=== PATIENT | female | born 1985 | race Caucasian/White ===

== ENCOUNTER 2017-02-23 10:34 | Day surgery (SDC) | payer OTHER ==
--- NOTE | ~2017-02-23 | EGD ---
EGD REPORT [facility] [address] [address] NAME: LAUREN BARBER : [birth year] STATUS : REG [facility]#: [id number] AGE: 31 ADM/REG DATE : 02/23/17 MR#: [id number] REPORT SERV DATE: 02/23/17 DICTATED BY: AUTUMN MOTA DATE: 02/23/17 REPORT STATUS : Draft TRANSCRIBED [facility]: [facility] DATE: 02/23/17 Endoscopy Center Patient Name: Lauren Barber Date of : 1985 Attending MD: AUTUMN MOTA MD Procedure Date No Time: 02/23/2017 Procedure: Upper GI endoscopy Indications: Dysphagia, Heartburn, Suspected esophageal reflux, Unexplained chest pain, Weight loss Referring MD: MASOOD STAPLETON Medicines: as per anesthesia Complications: No immediate complications. Procedure: Pre-Anesthesia Assessment: - ASA Grade Assessment: II - A patient with mild systemic disease. After obtaining informed consent, the endoscope was passed under direct vision. Throughout the procedure, the patient's blood pressure, pulse, and oxygen saturations were monitored continuously. The GIF H190 [id number] was introduced through the mouth, and advanced to the third part of duodenum. The upper GI endoscopy was accomplished without difficulty. The patient tolerated the procedure. Findings: Mucosal changes including ringed esophagus, vertical lines and white specks were found in the middle third of the esophagus. The scope was withdrawn. Dilation was performed with a Harris dilator with no resistance at 38 Fr and no resistance at 42 Fr. The entire examined stomach was normal. The cardia and gastric fundus were normal on retroflexion. The examined duodenum was normal. Biopsies were taken with a cold forceps for histology. Mucosal changes including ringed esophagus, vertical lines and white specks were found in the middle third of the esophagus. Biopsies were taken with a cold forceps for histology. Impression: - Esophageal mucosal changes suspicious for eosinophilic esophagitis. Dilated. - Normal stomach. - Normal examined duodenum. Biopsied. - Esophageal mucosal changes suggestive of eosinophilic esophagitis. Biopsied. Recommendation: - Await pathology results. EGD REPORT [address] [address] NAME: LAUREN BARBER : [birth year] STATUS : REG [facility]#: [id number] AGE: 31 ADM/REG DATE : 02/23/17 MR#: [id number] REPORT SERV DATE: 02/23/17 DICTATED BY: AUTUMN MOTA. DATE: 02/23/17 REPORT STATUS : Draft TRANSCRIBED BY: [employer] DATE: 02/23/17 - Continue present medications. Procedure Code(s): --- Professional --- 71930, Esophagogastroduodenoscopy, flexible, transoral; with biopsy, single or multiple 51650, Dilation of esophagus, by unguided sound or bougie, single or multiple passes Diagnosis Code(s): --- Professional --- K20.9, Esophagitis, unspecified R13.10, Dysphagia, unspecified R12, Heartburn R07.9, Chest pain, unspecified R63.4, Abnormal weight loss CPT copyright 2013 [employer]. All rights reserved. The codes documented in this report are preliminary and upon research contracts supervisor review may be revised to meet current compliance requirements. AUTUMN MOTA MD 02/23/2017 2:28 PM This report has been signed electronically. Number of Addenda: 0 Note Initiated On: 02/23/2017 1:58 PM Scope Withdrawal Time 0 hours 0 minutes 0 seconds [id number] [id number]
--- NOTE | ~2017-02-23 | EGD ---
EGD REPORT [facility] [address] [address] NAME: LAUREN BARBER : [birth year] STATUS : REG [facility]#: [id number] AGE: 31 ADM/REG DATE : 02/23/17 MR#: [id number] REPORT SERV DATE: 02/23/17 DICTATED BY: AUTUMN MOTA DATE: 02/23/17 REPORT STATUS : Draft [facility] DATE: 02/23/17 Endoscopy Center Patient Name: Lauren Barber Date of : 1985 Attending MD: AUTUMN MOTA MD Procedure Date No Time: 02/23/2017 Procedure: Upper GI endoscopy Indications: Dysphagia, Heartburn, Suspected esophageal reflux, Unexplained chest pain, Weight loss Referring MD: MASOOD STAPLETON Medicines: as per anesthesia Complications: No immediate complications. Procedure: Pre-Anesthesia Assessment: - ASA Grade Assessment: II - A patient with mild systemic disease. After obtaining informed consent, the endoscope was passed under direct vision. Throughout the procedure, the patient's blood pressure, pulse, and oxygen saturations were monitored continuously. The GIF H190 [id number] was introduced through the mouth, and advanced to the third part of duodenum. The upper GI endoscopy was accomplished without difficulty. The patient tolerated the procedure. Findings: Mucosal changes including ringed esophagus, vertical lines and white specks were found in the middle third of the esophagus. The scope was withdrawn. Dilation was performed with a Harris dilator with no resistance at 38 Fr and no resistance at 42 Fr. The entire examined stomach was normal. The cardia and gastric fundus were normal on retroflexion. The examined duodenum was normal. Biopsies were taken with a cold forceps for histology. Mucosal changes including ringed esophagus, vertical lines and white specks were found in the middle third of the esophagus. Biopsies were taken with a cold forceps for histology. Impression: - Esophageal mucosal changes suspicious for eosinophilic esophagitis. Dilated. - Normal stomach. - Normal examined duodenum. Biopsied. - Esophageal mucosal changes suggestive of eosinophilic esophagitis. Biopsied. Recommendation: - Await pathology results. EGD REPORT [address] [address] NAME: LAUREN BARBER : [birth year] STATUS : REG [facility]#: [id number] AGE: 31 ADM/REG DATE : 02/23/17 MR#: [id number] REPORT SERV DATE: 02/23/17 DICTATED BY: AUTUMN MOAT. DATE: 02/23/17 REPORT STATUS : Draft TRANSCRIBED BY: [employer] DATE: 02/23/17 - Continue present medications. Procedure Code(s): --- Professional --- 15307, Esophagogastroduodenoscopy, flexible, transoral; with biopsy, single or multiple 21747, Dilation of esophagus, by unguided sound or bougie, single or multiple passes Diagnosis Code(s): --- Professional --- K20.9, Esophagitis, unspecified R13.10, Dysphagia, unspecified R12, Heartburn R07.9, Chest pain, unspecified R63.4, Abnormal weight loss CPT copyright 2013 [employer]. All rights reserved. The codes documented in this report are preliminary and upon used car renovator review may be revised to meet current compliance requirements. AUTUMN MOTA MD 02/23/2017 2:28 PM This report has been signed electronically. Number of Addenda: 0 Note Initiated On: 02/23/2017 1:58 PM Scope Withdrawal Time 0 hours 0 minutes 0 seconds [id number] [place] [address] [id number]
[~2017-02-23 10:34] MED LIST: CYMBALTA30 PO; PROTONIX PO
== END 2017-02-23 23:59 | disposition home or self-care (01) ==
LOC: DMU 10:34
PROVIDERS: Internal Medicine Gastroenterology
PROC: 0DB98ZX Excision of Duodenum, Via Natural or Artificial Opening Endoscopic, Diagnostic (ICD-10-PCS; principal; 2017-02-23 12:30)
PROC: 0D737ZZ Dilation of Lower Esophagus, Via Natural or Artificial Opening (ICD-10-PCS; 2017-02-23 12:30)
DX: K31.89 Other diseases of stomach and duodenum (principal); F41.9 Anxiety disorder, unspecified; Z88.1 Allergy status to other antibiotic agents; Z90.89 Acquired absence of other organs; Z87.891 Personal history of nicotine dependence; Z79.899 Other long term (current) drug therapy; Z98.890 Other specified postprocedural states
CPT/HCPCS: 84703; 88305